=== PATIENT | male | born 1990 | race Caucasian/White ===

== ENCOUNTER 2018-08-02 02:19 | Emergency (ER) | payer SELFPAY ==
[~2018-08-02] VITALS: Ht 180.3 cm; Wt 76.2 kg
[2018-08-02 02:21] VITALS: BP 153/80; Ht 180.3 cm; Wt 76.2 kg
== END 2018-08-02 03:25 | disposition short-term general hospital (02) ==
LOC: ED 02:19
DX: T20.22XA Burn of second degree of lip(s), initial encounter (principal); T20.27XA Burn of second degree of neck, initial encounter; T21.22XA Burn of second degree of abdominal wall, initial encounter; T22.232A Burn of second degree of left upper arm, initial encounter; T22.20XA Burn of second degree of shoulder and upper limb, except wrist and hand, unspecified site, initial encounter; T21.21XA Burn of second degree of chest wall, initial encounter; T28.0XXA Burn of mouth and pharynx, initial encounter; T31.33 Burns involving 30-39% of body surface with 30-39% third degree burns; Z88.5 Allergy status to narcotic agent; W40.1XXA Explosion of explosive gases, initial encounter; Y93.89 Activity, other specified; Y92.89 Other specified places as the place of occurrence of the external cause; Y99.8 Other external cause status
CPT/HCPCS: J2270; J2405; J7030

== ENCOUNTER 2018-12-26 03:26 | Emergency (ER) | payer OTHER ==
[~2018-12-26] VITALS: Ht 177.8 cm; Wt 75.0 kg
[2018-12-26 03:32] VITALS: Ht 177.8 cm; Wt 75.0 kg
[2018-12-26 05:13] VITALS: BP 114/51
== END 2018-12-26 05:15 | disposition home or self-care (01) ==
LOC: ED 03:26
DX: S41.112A Laceration without foreign body of left upper arm, initial encounter (principal); Z88.5 Allergy status to narcotic agent; X58.XXXA Exposure to other specified factors, initial encounter; Y93.89 Activity, other specified; Y92.89 Other specified places as the place of occurrence of the external cause; Y99.8 Other external cause status
CPT/HCPCS: J2001

== ENCOUNTER 2019-10-19 15:05 | Emergency (ER) | payer OTHER ==
[~2019-10-19] VITALS: Ht 175.3 cm; Wt 76.2 kg
[2019-10-19 15:07] VITALS: Ht 175.3 cm; Wt 76.2 kg
[2019-10-19 15:55] VITALS: BP 115/66
== END 2019-10-19 15:55 | disposition other institution (70) ==
LOC: ED 15:05
DX: Z02.89 Encounter for other administrative examinations (principal)

== ENCOUNTER 2020-02-19 02:49 | Emergency (ER) | payer OTHER ==
[~2020-02-19] VITALS: Ht 175.3 cm; Wt 77.1 kg
[2020-02-19 02:54] VITALS: BP 115/69; Ht 175.3 cm; Wt 77.1 kg
== END 2020-02-19 04:00 | disposition other institution (70) ==
LOC: ED 02:49
DX: Z02.89 Encounter for other administrative examinations (principal)